=== PATIENT | female | born 1970 | race Caucasian/White ===

== ENCOUNTER 2017-01-12 16:59 | Emergency (ER) | payer MEDICAID ==
[~2017-01-12 16:59] MED LIST: ACIPHEX20 MG PO; CARAFATE PO; CELEXA PO; DIAZEPAM PO; FERROUS SULFATE PO; MOBIC PO; NO MEDICATIONS; OXYCONTIN PO; PERCOCET10 PO; PERCOCET5/325 PO; PHENERGAN PO; PRILOSEC PO; PRINIVIL20 M1 PO; PROTONIX PO; TRAZODONE PO; TYLENOL #3 PO; VICODIN 5/1 TAB 5/50 PO; VOLTAREN75 MG PO; ZESTORETIC 20/11 TAB PO; ZOFRAN PO
== END 2017-01-12 17:01 | disposition home or self-care (01) ==
LOC: SED 16:59
DX: H66.91 Otitis media, unspecified, right ear (principal); H60.311 Diffuse otitis externa, right ear; I10 Essential (primary) hypertension; F17.210 Nicotine dependence, cigarettes, uncomplicated
CPT/HCPCS: 99282

== ENCOUNTER 2017-02-14 15:52 | Emergency (ER) | payer MEDICAID | END 2017-02-14 18:20 | disposition home or self-care (01) | LOC: CFTX 15:52 → CED 15:52 → CFTX 17:32 | DX: H66.92 Otitis media, unspecified, left ear (principal); I10 Essential (primary) hypertension; F17.210 Nicotine dependence, cigarettes, uncomplicated | CPT/HCPCS: 99283 ==